=== PATIENT | male | born 1965 | race Caucasian/White ===

== ENCOUNTER 2017-02-02 23:57 | Emergency (ER) | payer OTHER ==
[~2017-02-02] VITALS: Ht 167.6 cm; Wt 95.3 kg
[~2017-02-02 23:57] MED LIST: CEPH500C; CYCL10TA9 PO; OXYC-109 PO; OXYC-471; SULF-222 PO; TRAM50TA2 PO
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
[2017-02-03] MEDS ORDERED: RX-TRAMADOL 50 MG (ULTRAM) TAB PPK#4 PO STA (00:34)
[2017-02-03] MEDS ORDERED: RX-NAPROXEN (NAPROSYN) 250 MG TAB PPK#4 PO STA (00:34)
[2017-02-03] MEDS ORDERED: TRAM-42 PO (00:41)
[2017-02-03] MEDS ORDERED: NAPR500T3 PO (00:41)
[2017-02-03 01:18] VITALS: BP 145/88
--- NOTE | 2017-02-03 07:03 | Diagnostic Imaging Report ---
INDICATION: Left knee pain. FINDINGS: 3 views of left knee show no fracture, dislocation or other acute abnormalities. There is some joint space narrowing in the medial tibiofemoral joint compartment. IMPRESSION: Early degenerative changes. No acute abnormality is seen. Dictated by: Dictated on workstation # [id number]
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
== END 2017-02-03 01:18 | disposition home or self-care (01) ==
LOC: EDUNIT# 23:57 → ER 02-03
DX: M25.562 Pain in left knee (principal); R22.42 Localized swelling, mass and lump, left lower limb; I10 Essential (primary) hypertension
CPT/HCPCS: 73562; 99283

== ENCOUNTER 2017-07-05 10:15 | Outpatient (RCR) | payer OTHER ==
[~2017-07-05 10:15] MED LIST changes: +NAPR500T3 PO; +TRAM-42 PO
== END 2017-07-05 12:03 | disposition home or self-care (01) ==
DX: Z02.71 Encounter for disability determination (principal)

== ENCOUNTER 2018-05-04 13:52 | Emergency (ER) | payer MEDICAID, OTHER ==
[~2018-05-04] VITALS: Ht 167.6 cm; Wt 106.6 kg
[~2018-05-04 13:52] MED LIST changes: +NAPR-915 PO; -NAPR500T3 PO
--- OUTSIDE RECORDS SUMMARY | 2018-05-04 13:58 | XMS REPORT ---
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 883512586 ALLERGIES Substance Reaction Event Type Date Status LATEX rash Non Drug Allergy Oct, Active ENCOUNTERS Encounter Location Date Diagnosis [place] [id number] [place] [phone] Nov, Dermatofibroma D23.9 [place] [address] [place] [id number] [place] [phone] Oct, Skin tags, multiple acquired L91.8 and Face lesion L98.9 [place] [address] [place] [id number] [place] [phone] Oct, 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 ; Skin tags, multiple acquired L91.8 ; Family history of heart disease Z82.49 and Family history of diabetes mellitus Z83.3 [place] [id number] [place] [phone] Oct, [place] [address] [place] [id number] [place] [phone] Oct, [place] [address] [place] [id number] [place] [phone] Oct, [place] [address] [place] [id number] [place] [phone] Oct, IMMUNIZATIONS No Known Immunizations SOCIAL HISTORY Never Assessed REASON FOR VISIT Skin tag removal (multiple in the armpitts and left side of face)-Mai LARA PLAN OF CARE VITAL SIGNS Height 66 in 2017-11-07 Weight 216.8 lbs 2017-11-07 Temperature 98.0 degrees Fahrenheit 2017-11-07 Heart Rate 76 bpm 2017-11-07 Respiratory Rate 18 2017-11-07 BMI 34.99 kg/m2 2017-11-07 Blood pressure systolic 164 mmHg 2017-11-07 Blood pressure diastolic 98 mmHg 2017-11-07 MEDICATIONS Unknown Medications RESULTS No Results PROCEDURES Procedure Date Ordered Result Body Site SKIN TAG REM LEISONS >15 (USE W/ [id number]) 2017-11-07 N/A CRYOTHERAPY OF SKIN 2017-11-07 N/A CRYOTHERAPY OF SKIN Nov 07, 2017 REMOVE SKIN TAGS ADD-ON Nov 07, 2017 INSTRUCTIONS MEDICATIONS ADMINISTERED No Known Medications MEDICAL (GENERAL) HISTORY Type Description Date Medical History hypertension Surgical History scope on knee Surgical History wrist surgery
--- OUTSIDE RECORDS SUMMARY | 2018-05-04 13:58 | XMS REPORT ---
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 907487628 ALLERGIES No Known Allergies ENCOUNTERS Encounter Location Date Diagnosis [place] [address] [phone] Nov, Dermatofibroma D23.9 [place] [address] [phone] Oct, Skin tags, multiple acquired L91.8 and Face lesion L98.9 [place] [address] [phone] Oct, 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 ; Skin tags, multiple acquired L91.8 ; Family history of heart disease Z82.49 and Family history of diabetes mellitus Z83.3 [place] [address] [place] [id number] [place] [phone] Oct, [place] [address] [place] [id number] [place] [phone] Oct, [place] [address] [address] Oct, [place] [address] [place] [id number] [place] [phone] Oct, IMMUNIZATIONS No Known Immunizations SOCIAL HISTORY Never Assessed REASON FOR VISIT skin tag--Joseph Carias MA PLAN OF CARE Activity Details Follow Up prn Reason: VITAL SIGNS Height 66 in 2017-10-20 Weight 222.8 lbs 2017-10-20 Temperature 98.2 degrees Fahrenheit 2017-10-20 Heart Rate 96 bpm 2017-10-20 Respiratory Rate 20 2017-10-20 BMI 35.96 kg/m2 2017-10-20 Blood pressure systolic 142 mmHg 2017-10-20 Blood pressure diastolic 90 mmHg 2017-10-20 MEDICATIONS Unknown Medications RESULTS No Results PROCEDURES No Known procedures INSTRUCTIONS MEDICATIONS ADMINISTERED No Known Medications MEDICAL (GENERAL) HISTORY Type Description Date Medical History hypertension Surgical History scope on knee Surgical History wrist surgery
[2018-05-04 14:12] LABS: BASOPHILS % (AUTO) 0 % (0-10); EOSINOPHILS # (AUTO) 0.3 10^3/uL (0.0-0.3); EOSINOPHILS % (AUTO) 3 % (0-10); HEMATOCRIT 43 % (40-54); HEMOGLOBIN 15.4 G/DL (13.3-17.7); LYMPHOCYTES # (AUTO) 2.2 X 10^3 (1.0-4.0); LYMPHOCYTES % (AUTO) 27 % (12-44); MEAN CORPUSCULAR HEMOGLOBIN 31 PG (25-34); MEAN CORPUSCULAR HGB CONC 36 G/DL (32-36); MEAN CORPUSCULAR VOLUME 85 FL (80-99); MEAN PLATELET VOLUME 9.4 FL (7.4-10.4); MONOCYTES # (AUTO) 0.7 X 10^3 (0.0-1.0); MONOCYTES % (AUTO) 9 % (0-12); NEUTROPHILS # (AUTO) 5.1 X 10^3 (1.8-7.8); NEUTROPHILS % (AUTO) 61 % (42-75); PLATELET COUNT 218 10^3/uL (130-400); RED BLOOD COUNT 5.02 10^6/uL (4.35-5.85); RED CELL DISTRIBUTION WIDTH 13.1 % (10.0-14.5); WHITE BLOOD COUNT 8.4 10^3/uL (4.3-11.0)
[2018-05-04] MEDS ORDERED: ASPIRIN 81 MG CHEW (CHILDREN'S ASA) PO ONE (14:15)
[2018-05-04 14:25] LABS: PROTHROMBIN TIME PATIENT 13.4 SEC (12.2-14.7)
--- NOTE | 2018-05-04 14:27 | Diagnostic Imaging Report ---
INDICATION: Chest pain. EXAMINATION: Portable chest at 2:17 p.m. FINDINGS: Heart size and pulmonary vascularity are normal. Lungs are clear. There are no effusions or pneumothoraces. IMPRESSION: Negative chest. Dictated by: Dictated on workstation # [id number]
[2018-05-04 14:37] LABS: ALANINE AMINOTRANSFERASE 75 U/L (0-55); ALBUMIN 4.3 GM/DL (3.2-4.5); ALKALINE PHOSPHATASE 85 U/L (40-136); BILIRUBIN,TOTAL 1.1 MG/DL (0.1-1.0); BUN/CREATININE RATIO 24; CALCIUM 9.1 MG/DL (8.5-10.1); CARBON DIOXIDE 21 MMOL/L (21-32); CHLORIDE 109 MMOL/L (98-107); CREATININE SERUM 0.84 MG/DL (0.60-1.30); GFR ESTIMATED > 60; GLUCOSE 97 MG/DL (70-105); MAGNESIUM 2.1 MG/DL (1.8-2.4); POTASSIUM 3.9 MMOL/L (3.6-5.0); SODIUM 139 MMOL/L (135-145); TOTAL PROTEIN 7.2 GM/DL (6.4-8.2)
[2018-05-04 14:45] LABS: MYOGLOBIN SERUM 34.8 NG/ML (10.0-92.0)
[2018-05-04] MEDS ORDERED: NS IV 1000 ML 1,000 ML IV ONE (15:05)
--- NOTE | 2018-05-04 15:13 | ED Chest Pain ---
General Chief Complaint: Chest Pain Stated Complaint: CP,LEFT ARM NUMB Nursing Triage Note: pt presents to ed with complaints of cp and l arm numbness starting at 1330. Nursing Sepsis Screen: No Definite Risk Source: patient Exam Limitations: no limitations History of Present Illness Date Seen by Provider: May 04, 2018 Time Seen by Provider: 14:50 Initial Comments Here with report of chest pain that was on the right side and is in the left side and then radiated to the left arm. Onset today at about 130. He's had intermittent events like this before. Denies nausea, vomiting, sweating, weakness or breathing problems with this pain is described as an ache in his much gone now. Does report history of hypertension although not noted here. Does wear a leg brace during the day due to instability of the left knee but does not wear at nighttime. Timing/Duration: 1-3 hours, changing over time, intermittent Severity/Quality: moderate, aching Location: central Radiation: arms (left) Prior CP/Workup: no prior cardiac workup Modifying Factors: worse with exercise, worse with oxygen ASA po FAST FOOD SERVER: No NTG SL FAST FOOD SERVER: No Associated Symptoms: No back pain; nausea/vomiting; No shortness of breath, No weakness Allergies and Home Medications Allergies Coded Allergies: latex (Verified Allergy, Unknown, 05/04/18) Home Medications Cyclobenzaprine Hcl 10 Mg Tablet, 1 EACH PO Q8HR PRN PRN for SPASMS Prescribed by: LEONIDES LANGLEY on 12/25/132224 Naproxen 500 Mg Tablet, 500 MG PO BID Prescribed by: JIMI WEEKS on 02/03/17 004 Tramadol HCl 50 Mg Tablet, 50 MG PO Q4H Prescribed by: JIMI WEEKS on 02/03/17 0041 Patient Home Medication List Home Medication List Reviewed: Yes Review of Systems Constitutional: see HPI; No chills, No fever EENTM: No Symptoms Reported Respiratory: No Symptoms Reported Cardiovascular: Chest Pain; Denies Edema, Denies Lightheadedness, Denies Palpitations Gastrointestinal: No Symptoms Reported Genitourinary: No Symptoms Reported All Other Systems Reviewed Negative Unless Noted: Yes Past Tetqwjk-Rluebv-Xfaodn Hx Past Med/Social Hx: Reviewed Nursing Past Med/Soc Hx Patient Social History Alcohol Use: Occasionally Uses Number of Drinks Today: GG Alcohol Beverage of Choice: Beer, Whiskey Recreational Drug Use: Yes (SMOKES CIGARS ET PIPES) Smoking Status: Current Everyday Smoker Type Used: Cigars, Pipe Recent Foreign Travel: No Contact w/Someone Who Travel: No Recent Infectious Disease Expo: No Recent Hopitalizations: Yes (SURG L HAND SURG) Physical Abuse: No Sexual Abuse: No Mistreated: No Fear: No Immunizations Up To Date Tetanus Booster (TDap): Less than 5yrs Past Medical History Surgeries: Yes (L KNEE SCOPE, R WRIST SURG--DR. MATHIAS, ORTHO 4 STATES) Orthopedic Respiratory: No Cardiac: Yes Hypertension Neurological: No Reproductive Disorders: No Sexually Transmitted Disease: No Genitourinary: No Gastrointestinal: No Musculoskeletal: Yes (ACL AND MEDIAL MENISCUS TEAR LEFT KNEE; RIGHT WRIST SURGERY) Endocrine: No Cataract Cancer: No Psychosocial: No Nursing Suicide Risk Score: 0 Integumentary: No Blood Disorders: No Family Medical History Reviewed Nursing Family Hx Physical Exam Vital Signs Vital Signs - First Documented 05/04/18 14:13 Temp 98.2 Pulse 92 Resp 20 B/P (MAP) 155/96 (115) Pulse Ox 95 Capillary Refill : Less Than 3 Seconds General Appearance: No Apparent Distress, WD/WN HEENT: PERRL/EOMI, Pharynx Normal Neck: Non Tender, Supple Respiratory: Lungs Clear, Normal Breath Sounds Cardiovascular: Regular Rate, Rhythm, No Murmur Gastrointestinal: Non Tender, Soft Extremity: Normal Range of Motion, Non Tender Neurologic/Psychiatric: Alert, Oriented x3 Skin: Normal Color, Warm/Dry Progress/Results/Core Measures Results/Orders Lab Results Laboratory Tests Test 05/04/18 14:02 05/04/18 16:25 Range/Units White Blood Count 8.4 4.3-11.0 10^3/uL Red Blood Count 5.02 4.35-5.85 10^6/uL Hemoglobin 15.4 13.3-17.7 G/DL Hematocrit 43 40-54 % Mean Corpuscular Volume 85 80-99 FL Mean Corpuscular Hemoglobin 31 25-34 PG Mean Corpuscular Hemoglobin Concent 36 32-36 G/DL Red Cell Distribution Width 13.1 10.0-14.5 % Platelet Count 218 130-400 10^3/uL Mean Platelet Volume 9.4 7.4-10.4 FL Neutrophils (%) (Auto) 61 42-75 % Lymphocytes (%) (Auto) 27 12-44 % Monocytes (%) (Auto) 9 0-12 % Eosinophils (%) (Auto) 3 0-10 % Basophils (%) (Auto) 0 0-10 % Neutrophils # (Auto) 5.1 1.8-7.8 X 10^3 Lymphocytes # (Auto) 2.2 1.0-4.0 X 10^3 Monocytes # (Auto) 0.7 0.0-1.0 X 10^3 Eosinophils # (Auto) 0.3 0.0-0.3 10^3/uL Basophils # (Auto) 0.0 0.0-0.1 10^3/uL Prothrombin Time 13.4 12.2-14.7 SEC INR Comment 1.0 0.8-1.4 Activated Partial Thromboplast Time 29 24-35 SEC D-Dimer 0.73 H 0.00-0.49 UG/ML Sodium Level 139 135-145 MMOL/L Potassium Level 3.9 3.6-5.0 MMOL/L Chloride Level 109 H 98-107 MMOL/L Carbon Dioxide Level 21 21-32 MMOL/L Anion Gap 9 5-14 MMOL/L Blood Urea Nitrogen 20 H 7-18 MG/DL Creatinine 0.84 0.60-1.30 MG/DL Estimat Glomerular Filtration Rate > 60 BUN/Creatinine Ratio 24 Glucose Level 97 70-105 MG/DL Calcium Level 9.1 8.5-10.1 MG/DL Magnesium Level 2.1 1.8-2.4 MG/DL Total Bilirubin 1.1 H 0.1-1.0 MG/DL Aspartate Amino Transf (AST/SGOT) 35 H 5-34 U/L Alanine Aminotransferase (ALT/SGPT) 75 H 0-55 U/L Alkaline Phosphatase 85 40-136 U/L Myoglobin 34.8 10.0-92.0 NG/ML Troponin I < 0.30 < 0.30 <0.30 NG/ML Total Protein 7.2 6.4-8.2 GM/DL Albumin 4.3 3.2-4.5 GM/DL My Orders Orders - JUJU HUA MD Ekg Tracing (05/04/18 14:01) Cbc With Automated Diff (05/04/18 14:04) Magnesium (05/04/18 14:04) Chest 1 View, Ap/Pa Only (05/04/18 14:04) Cardiac Profile 1 (05/04/18 14:04) Comprehensive Metabolic Panel (05/04/18 14:04) Myoglobin Serum (05/04/18 14:04) Protime With Inr (05/04/18 14:04) Partial Thromboplastin Time (05/04/18 14:04) O2 (05/04/18 14:04) Monitor-Rhythm Ecg Trace Only (05/04/18 14:04) Lipid Panel (05/05/18 06:00) Aspirin Chewable Tablet (Baby Aspirin Ch (05/04/18 14:15) Saline Lock/Iv-Start (05/04/18 14:04) Fibrin Degradation Products (05/04/18 14:04) Ct Angio Chest W (05/04/18 15:05) Ns Iv 1000 Ml (Sodium Chloride 0.9%) (05/04/18 15:05) Iohexol Injection (Omnipaque 350 Mg/Ml 1 (05/04/18 15:15) Sodium Chloride Flush (Catheter Flush Sy (05/04/18 15:15) Ns (Ivpb) (Sodium Chloride 0.9%) (05/04/18 15:15) Pharmacy Communication (Pharmacy Communi (05/04/18 15:07) Troponin I (05/04/18 16:20) Medications Given in ED Current Medications Medications Dose Ordered Sig/Edda Route Start Time Stop Time Status Last Admin Dose Admin Aspirin 324 mg ONCE ONCE PO 05/04/18 14:15 05/04/18 14:16 DC 05/04/18 14:24 324 MG Iohexol 150 ml ONCE ONCE IV 05/04/18 15:15 05/04/18 15:16 DC 05/04/18 15:28 125 ML Sodium Chloride 10 ml NEEDED PRN IV 05/04/18 15:15 05/04/18 15:28 10 ML Sodium Chloride 250 ml ONCE ONCE IV 05/04/18 15:15 05/04/18 15:16 DC 05/04/18 15:28 80 ML Sodium Chloride 1,000 ml @ 0 mls/hr Q0M ONCE IV 05/04/18 15:05 05/04/18 15:07 DC 05/04/18 15:33 0 MLS/HR Vital Signs/I&O 05/04/18 14:13 Temp 98.2 Pulse 92 Resp 20 B/P (MAP) 155/96 (115) Pulse Ox 95 Blood Pressure Mean: 115 Progress Progress Note : Progress Note Seen and evaluated the patient. IV, labs, ASA 304 mg by mouth, chest x-ray and EKG ordered. Monitor patient. D-dimer slightly elevated and patient wears leg brace so a higher risk. CT angiogram of the chest ordered and normal saline 1 L bolus ordered. Monitor patient. 1706: Patient is without pain and repeat troponin is negative as well as CT angiogram of the chest. Patient remains pain free. At this point safe for discharge home with follow-up. Discharged home with return precautions. Patient verbalize understanding instructions and agreement with plan. He is to follow-up with the [facility] for referral to cardiology as needed. Initial ECG Impression Date: May 04, 2018 Initial ECG Impression Time: 13:59 Initial ECG Rate: 91 Initial ECG Rhythm: Normal Sinus Comment Sinus rhythm with left atrial abnormality. No evidence of ST elevation FL. Normal axis. Interpreted by me. Diagnostic Imaging Diagonstic Imaging: Xray Plain Films/CT/US/NM/MRI: chest Comments NAME: ALEE FINNEGAN [facility] REC#: [id number] PT STATUS: REG ER : 1965 PHYSICIAN: JUJU HUA MD ADMIT DATE: 05/04/18/ER Signed Date of Exam: 05/04/18 CHEST 1 VIEW, AP/PA ONLY INDICATION: Chest pain. EXAMINATION: Portable chest at 2:17 p.m. FINDINGS: Heart size and pulmonary vascularity are normal. Lungs are clear. There are no effusions or pneumothoraces. IMPRESSION: Negative chest. Dictated by: Dictated on workstation # [id number] Dict: 05/04/18 1421 Trans: 05/04/18 142 Interpreted by: JUJU MOREL MD Electronically signed by: JUJU MOREL MD 05/04/181426 Diagonstic Imaging: CT Plain Films/CT/US/NM/MRI: chest Comments VIA [facility] [place] [place], [place] NAME: ALEE FINNEGAN [place] [facility] REC#: [id number] PT STATUS: REG ER : 1965 PHYSICIAN: JUJU HUA MD ADMIT DATE: 05/04/18/ER Draft Date of Exam:05/04/18 CT ANGIO CHEST W PROCEDURE: CT angiography of the chest with contrast. TECHNIQUE: Multiple contiguous axial images were obtained through the chest after uneventful bolus administration of intravenous contrast. Reconstructed CTA MIP acquisitions were also performed. INDICATION: Chest pain and left arm numbness as well as elevated d-dimer. COMPARISON: No prior studies are available for comparison. FINDINGS: Evaluation of the pulmonary arterial system is without evidence of thromboembolism. No filling defects are identified within the central, lobar or segmental branches. The thoracic aorta is normal caliber. No dissection is seen. No pericardial or pleural fluid is identified. No axillary, hilar or mediastinal lymphadenopathy is identified. No pulmonary infiltrates, nodules or masses are seen. Upper abdomen does demonstrate hepatic steatosis. IMPRESSION: 1. No evidence of pulmonary embolism or thoracic aortic dissection. 2. Hepatic steatosis. Dictated on workstation # [id number] Dict: 05/04/18 1535 Trans: 05/04/18 1543 [facility] [id number] Interpreted by: MCKAY BYRNE MD Electronically signed by: Departure Impression Primary Impression: Chest pain Qualified Codes: R07.9 - Chest pain, unspecified Disposition: 01 HOME, SELF-CARE Condition: Improved Departure-Patient Inst. Decision time for Depature: 17:10 Referrals: RAMÓN STEVEN MD (PCP/Family) Primary Care Physician Patient Instructions: Chest Pain (DC) Add. Discharge Instructions: All discharge instructions reviewed with patient and/or family. Voiced understanding. Follow-up with your doctor this week for recheck and further evaluation and for referral to cardiology as needed. Return for worsening, fever, vomiting, weakness, breathing problems or other concerns as needed. You can consider over -the-counter Pepcid or the generic famotidine 20 mg daily as needed for stomach upset. You may take Tylenol/acetaminophen 1000 mg every 8 hours as needed for pain. Copy Copies To 1: RAMÓN STEVEN MD, TIMOTHY D MD May 04, 2018 15:13
[2018-05-04] MEDS ORDERED: CATHETER FLUSH 10 ML SYR IV PRN (15:15)
[2018-05-04] MEDS ORDERED: IOHEXOL 350 MG/ML 150 ML (OMNIPAQUE 350) VIAL IV ONE (15:15)
[2018-05-04] MEDS ORDERED: NS 250 ML (IVPB) BAG IV ONE (15:15)
--- NOTE | 2018-05-04 15:44 | Diagnostic Imaging Report ---
PROCEDURE: CT angiography of the chest with contrast. TECHNIQUE: Multiple contiguous axial images were obtained through the chest after uneventful bolus administration of intravenous contrast. Reconstructed CTA MIP acquisitions were also performed. INDICATION: Chest pain and left arm numbness as well as elevated d-dimer. COMPARISON: No prior studies are available for comparison. FINDINGS: Evaluation of the pulmonary arterial system is without evidence of thromboembolism. No filling defects are identified within the central, lobar or segmental branches. The thoracic aorta is normal caliber. No dissection is seen. No pericardial or pleural fluid is identified. No axillary, hilar or mediastinal lymphadenopathy is identified. No pulmonary infiltrates, nodules or masses are seen. Upper abdomen does demonstrate hepatic steatosis. IMPRESSION: 1. No evidence of pulmonary embolism or thoracic aortic dissection. 2. Hepatic steatosis. Dictated by: Dictated on workstation # [id number]
[2018-05-04 17:19] VITALS: BP 140/90
== END 2018-05-04 17:19 | disposition home or self-care (01) ==
LOC: EDUNIT# 13:52 → ER 13:54
DX: R07.89 Other chest pain (principal); I10 Essential (primary) hypertension; F17.290 Nicotine dependence, other tobacco product, uncomplicated; Z91.040 Latex allergy status
CPT/HCPCS: 36415; 71045; 71275; 80053; 83735; 83874; 84484; 85025; 85379; 85610; 85730; 93005; 93041

== ENCOUNTER 2019-11-18 10:15 | Outpatient (CLI) | payer MEDICAID ==
[~2019-11-18] VITALS: Ht 165 cm; Wt 98.6 kg
[~2019-11-18 10:15] MED LIST changes: +AMLO10TA7 PO; +LISI10TA2 PO; +POLY17PO6 PO
== END 2019-11-18 11:07 | disposition home or self-care (01) ==
LOC: PREOP 10:15
PROVIDERS: ATTEND Surgery
DX: Z01.818 Encounter for other preprocedural examination (principal)

== ENCOUNTER → 2020-03-23 | Outpatient (CLI) | payer MEDICAID, MEDICARE | LOC: CARD 08:51 | PROVIDERS: ATTEND Internal Medicine Interventional Cardiology | DX: R07.2 Precordial pain (principal); R73.03 Prediabetes; I10 Essential (primary) hypertension; Z72.0 Tobacco use | CPT/HCPCS: 93306 ==

== ENCOUNTER → 2020-03-26 | Outpatient (CLI) | payer MEDICAID, MEDICARE ==
[~2020-03-26] MED LIST changes: +REGADENOSON 0.4 MG/5 ML SYR (LEXISCAN) IV ONE
[2020-03-26] MEDS: CATHETER FLUSH 10 ML SYR IV PRN ×2 (08:14→09:57)
[2020-03-26 09:56] VITALS: BP 128/85
--- NOTE | 2020-04-04 14:14 | Cardiology Stress Test Report ---
Stress Test Report Type of NM Stress Test: Test Type: LEXISCAN 0.4MG/5ML Date of Procedure/Referring: Date of Procedure: March 26, 2020 PCP Melody Hernandez MD Admitting Physician [place] Indications: Precordial pain Baseline Heart Rate: 81 Baseline Blood Pressure: Blood Pressure Systolic: 128 Blood Pressure Diastolic: 85 Baseline EKG: Baseline EKG: Sinus rhythm Summary & Conclusion: Summary: The patient was brought to the stress lab after informed consent was taken. Stress test was performed according to the Lexiscan protocol. 0.4 mg of IV Lexiscan was given. Low-grade exercise was performed. Baseline EKG showed sinus rhythm at 81 bpm, blood pressure 123/79 mmHg. Maximum heart rate of 101 bpm and blood pressure 129/78 mmHg. Patient did not have any chest pain, arrhythmias or ST segment changes during the stress test. 9.77 mCi of Myoview were given for rest imaging and 30.4 mCi of Myoview given for stress imaging. Transient ischemic dilatation score , EF percent. Normal wall motion. Normal myocardial perfusion imaging during rest and stress. Small fixed apical defect likely artifact. Conclusion: Pharmacological stress test was negative for ischemia. Normal LV function with no wall motion abnormalities. Normal myocardial perfusion imaging during rest and stress. Melody HERNANDEZ MD April 04, 2020 14:14
== END ==
LOC: CARD 07:14
PROVIDERS: ATTEND Internal Medicine Interventional Cardiology
DX: R07.2 Precordial pain (principal); R73.03 Prediabetes; I10 Essential (primary) hypertension; Z72.0 Tobacco use
CPT/HCPCS: 78452; 93017

== ENCOUNTER 2020-04-10 15:36 | Emergency (ER) | payer MEDICARE ==
[~2020-04-10] VITALS: Ht 165.1 cm; Wt 99.3 kg
[~2020-04-10 15:36] MED LIST changes: -REGADENOSON 0.4 MG/5 ML SYR (LEXISCAN) IV ONE
--- NOTE | 2020-04-10 16:11 | ED Chest Pain ---
General Stated Complaint: CP X 2 MONTHS Source: patient Exam Limitations: no limitations History of Present Illness Date Seen by Provider: April 10, 2020 Time Seen by Provider: 16:09 Initial Comments To ER with left-sided chest pain intermittently for 2 months. No associated shortness of breath diaphoresis or nausea. He has followed with Dr. Hernandez, had an echocardiogram done which she tells me was normal, he had a stress test done just about a week ago which I reviewed and was negative for ischemia. This chest pain is sharp in nature. This particular episode began a few hours ago while he was sweeping the floor. Timing/Duration: intermittent Severity/Quality: moderate, sharp Location: other (left sided) Radiation: no radiation ASA po CHIEF MATE: No NTG SL CHIEF MATE: No Associated Symptoms: No shortness of breath Allergies and Home Medications Allergies Coded Allergies: latex (Verified Allergy, Mild, ITCHING/RASH, 11/18/19) Home Medications Amlodipine Besylate 10 Mg Tablet, 10 MG PO DAILY, (Reported) Lisinopril 10 Mg Tablet, 10 MG PO DAILY, (Reported) Polyethylene Glycol 3350 17 Gm Powd.pack, 17 GM PO DAILY, (Reported) Patient Home Medication List Home Medication List Reviewed: Yes Review of Systems Review of Systems Constitutional: see HPI EENTM: No Symptoms Reported Respiratory: See HPI Cardiovascular: See HPI, Chest Pain Gastrointestinal: No Symptoms Reported Genitourinary: No Symptoms Reported Musculoskeletal: no symptoms reported Skin: no symptoms reported Psychiatric/Neurological: No Symptoms Reported Endocrine: No Symptoms Reported Hematologic/Lymphatic: No Symptoms Reported Past Ozvrlzg-Ekluda-Sgybuj Hx Patient Social History Alcohol Beverage of Choice: Beer, Whiskey Type Used: Cigars, Pipe 2nd Hand Smoke Exposure: Yes Recent Foreign Travel: No Contact w/Someone Who Travel: No Recent Hopitalizations: No Immunizations Up To Date Tetanus Booster (TDap): Less than 5yrs Seasonal Allergies Seasonal Allergies: No Past Medical History Surgeries: Yes (L KNEE SCOPE, R WRIST) Orthopedic Respiratory: No Cardiac: Yes Hypertension Neurological: No Reproductive Disorders: No Sexually Transmitted Disease: No Genitourinary: No Gastrointestinal: No Musculoskeletal: Yes (ACL AND MEDIAL MENISCUS TEAR LEFT KNEE; RIGHT WRIST SURGERY) Endocrine: No (PRE-DIABETIC) HEENT: Yes (GLASSES) Cataract Loss of Vision: Denies Hearing Impairment: Denies Cancer: Yes Skin Psychosocial: Yes Depression Integumentary: No Blood Disorders: No Adverse Reaction/Blood Tranf: No (N/A) Physical Exam Vital Signs Vital Signs - First Documented Capillary Refill : Height, Weight, BMI Height: 5'6.00" Weight: 235lbs. oz. 106.260706ux; 233.37 BMI Method:Stated General Appearance: No Apparent Distress, WD/WN HEENT: PERRL/EOMI, TMs Normal Respiratory: No Accessory Muscle Use, No Respiratory Distress Cardiovascular: Regular Rate, Rhythm, Normal Peripheral Pulses Gastrointestinal: Normal Bowel Sounds, Non Tender, Soft Extremity: Normal Capillary Refill, Normal Inspection Neurologic/Psychiatric: Alert, Oriented x3 Skin: Normal Color, Warm/Dry Progress/Results/Core Measures Results/Orders Lab Results Laboratory Tests Test 04/10/20 16:00 Range/Units White Blood Count 7.3 4.3-11.0 10^3/uL Red Blood Count 4.63 4.35-5.85 10^6/uL Hemoglobin 13.8 13.3-17.7 G/DL Hematocrit 40 40-54 % Mean Corpuscular Volume 86 80-99 FL Mean Corpuscular Hemoglobin 30 25-34 PG Mean Corpuscular Hemoglobin Concent 35 32-36 G/DL Red Cell Distribution Width 12.9 10.0-14.5 % Platelet Count 240 130-400 10^3/uL Mean Platelet Volume 9.5 7.4-10.4 FL Neutrophils (%) (Auto) 56 42-75 % Lymphocytes (%) (Auto) 30 12-44 % Monocytes (%) (Auto) 11 0-12 % Eosinophils (%) (Auto) 3 0-10 % Basophils (%) (Auto) 0 0-10 % Neutrophils # (Auto) 4.1 1.8-7.8 X 10^3 Lymphocytes # (Auto) 2.2 1.0-4.0 X 10^3 Monocytes # (Auto) 0.8 0.0-1.0 X 10^3 Eosinophils # (Auto) 0.2 0.0-0.3 10^3/uL Basophils # (Auto) 0.0 0.0-0.1 10^3/uL Prothrombin Time 12.2 12.2-14.7 SEC INR Comment 0.9 0.8-1.4 Activated Partial Thromboplast Time 29 24-35 SEC D-Dimer 0.39 0.00-0.49 UG/ML Sodium Level 139 135-145 MMOL/L Potassium Level 3.5 L 3.6-5.0 MMOL/L Chloride Level 109 H 98-107 MMOL/L Carbon Dioxide Level 21 21-32 MMOL/L Anion Gap 9 5-14 MMOL/L Blood Urea Nitrogen 9 7-18 MG/DL Creatinine 0.97 0.60-1.30 MG/DL Estimat Glomerular Filtration Rate > 60 BUN/Creatinine Ratio 9 Glucose Level 142 H 70-105 MG/DL Calcium Level 8.3 L 8.5-10.1 MG/DL Corrected Calcium 8.5 8.5-10.1 MG/DL Magnesium Level 2.0 1.6-2.4 MG/DL Total Bilirubin 0.4 0.1-1.0 MG/DL Aspartate Amino Transf (AST/SGOT) 22 5-34 U/L Alanine Aminotransferase (ALT/SGPT) 40 0-55 U/L Alkaline Phosphatase 103 40-136 U/L Myoglobin 15.1 10.0-92.0 NG/ML Troponin I < 0.028 <0.028 NG/ML Total Protein 6.6 6.4-8.2 GM/DL Albumin 3.8 3.2-4.5 GM/DL My Orders Orders - TAD ORTEGA APRN Fibrin Degradation Products (04/10/20 16:29) Ketorolac Injection (Toradol Injection) (04/10/20 17:00) Medications Given in ED Current Medications Medications Dose Ordered Sig/Edda Route Start Time Stop Time Status Last Admin Dose Admin Ketorolac Tromethamine 15 mg ONCE ONCE IVP 04/10/20 17:00 04/10/20 17:01 DC 04/10/20 17:06 15 MG Vital Signs/I&O 04/10/20 04/10/20 15:50 15:50 Temp 36.9 Pulse 91 Resp 30 B/P (MAP) 112/82 (92) Pulse Ox 98 O2 Delivery Room Air Room Air Departure Communication (Admissions) 1720-after Toradol he states that his pain is gone. He would like to go on home because he lives by himself and needs to let his dogs out. I discussed with him that we would like to repeat a troponin at the 2 hour kalia to ensure that it is truly negative. He is understanding of the risk that the first one may have done with insufficient time between the onset of pain and drawing of the lab work. This could have been falsely reassuring. Accepting of this risk and would like to go on home. I discussed with him that his stress test was normal one week ago. Impression Primary Impression: Chest pain Qualified Codes: R07.9 - Chest pain, unspecified Disposition: 01 HOME, SELF-CARE Condition: Stable Departure-Patient Inst. Decision time for Depature: 17:22 Ref[facility]: [facility] [place] (PCP) Primary Care Physician BOB ROJO MD (Family) Primary Care Physician Patient Instructions: Chest Pain (DC) Copy Copies To 1: BOB ROJO MD; Melody HERNANDEZ MD, PETER J APRN April 10, 2020 16:11
[2020-04-10 16:17] LABS: BASOPHILS % (AUTO) 0 % (0-10); EOSINOPHILS # (AUTO) 0.2 10^3/uL (0.0-0.3); EOSINOPHILS % (AUTO) 3 % (0-10); HEMATOCRIT 40 % (40-54); HEMOGLOBIN 13.8 G/DL (13.3-17.7); LYMPHOCYTES # (AUTO) 2.2 X 10^3 (1.0-4.0); LYMPHOCYTES % (AUTO) 30 % (12-44); MEAN CORPUSCULAR HEMOGLOBIN 30 PG (25-34); MEAN CORPUSCULAR HGB CONC 35 G/DL (32-36); MEAN CORPUSCULAR VOLUME 86 FL (80-99); MEAN PLATELET VOLUME 9.5 FL (7.4-10.4); MONOCYTES # (AUTO) 0.8 X 10^3 (0.0-1.0); MONOCYTES % (AUTO) 11 % (0-12); NEUTROPHILS # (AUTO) 4.1 X 10^3 (1.8-7.8); NEUTROPHILS % (AUTO) 56 % (42-75); PLATELET COUNT 240 10^3/uL (130-400); RED CELL DISTRIBUTION WIDTH 12.9 % (10.0-14.5); WHITE BLOOD COUNT 7.3 10^3/uL (4.3-11.0)
[2020-04-10 16:27] LABS: ALBUMIN 3.8 GM/DL (3.2-4.5); CHLORIDE 109 MMOL/L (98-107); POTASSIUM 3.5 MMOL/L (3.6-5.0); SODIUM 139 MMOL/L (135-145)
[2020-04-10 16:29] LABS: CALCIUM 8.3 MG/DL (8.5-10.1)
[2020-04-10 16:30] LABS: GLUCOSE 142 MG/DL (70-105); INR 0.9 (0.8-1.4); PROTHROMBIN TIME PATIENT 12.2 SEC (12.2-14.7); TOTAL PROTEIN 6.6 GM/DL (6.4-8.2)
[2020-04-10 16:31] LABS: BILIRUBIN,TOTAL 0.4 MG/DL (0.1-1.0); CARBON DIOXIDE 21 MMOL/L (21-32)
[2020-04-10 16:33] LABS: ALKALINE PHOSPHATASE 103 U/L (40-136); CREATININE SERUM 0.97 MG/DL (0.60-1.30); GFR ESTIMATED > 60
[2020-04-10 16:34] LABS: BUN/CREATININE RATIO 9
[2020-04-10 16:36] LABS: ALANINE AMINOTRANSFERASE 40 U/L (0-55)
[2020-04-10] MEDS ORDERED: KETOROLAC 30 MG/ML VIAL IVP ONE (17:00)
--- NOTE | 2020-04-10 17:08 | Diagnostic Imaging Report ---
Indication: Chest pain Comparison is made study of 05/04/2018 Single AP view of the chest is obtained. FINDINGS: Heart size and pulmonary vascularity are within normal limits, and the lungs are clear, bilaterally. IMPRESSION: Unremarkable chest. Dictated by: Dictated on workstation # [id number]
[2020-04-10 17:44] VITALS: BP 115/76
== END 2020-04-10 17:44 | disposition home or self-care (01) ==
LOC: EDUNIT# 15:36 → ER 15:38
DX: R07.89 Other chest pain (principal); I10 Essential (primary) hypertension; Z91.040 Latex allergy status; Z77.22 Contact with and (suspected) exposure to environmental tobacco smoke (acute) (chronic); Z87.828 Personal history of other (healed) physical injury and trauma
CPT/HCPCS: 36415; 71045; 80053; 83735; 83874; 84484; 85025; 85379; 85610; 85730; 93005; 93041; 96374

== ENCOUNTER → 2021-07-26 | Outpatient (CLI) | payer MEDICARE ==
[~2021-07-26] VITALS: Ht 165 cm; Wt 94.0 kg
[~2021-07-26] MED LIST changes: +AMLO-251 PO; -AMLO10TA7 PO; +CATHETER FLUSH 10 ML SYR IV PRN; -LISI10TA2 PO; +LISI10TA25 PO; -OXYC-471; +OXYC1TAB11; +REGADENOSON 0.4 MG/5 ML SYR (LEXISCAN) IV ONE
[2021-07-26 09:01] VITALS: BP 104/67
--- NOTE | 2021-07-26 11:04 | Cardiology Stress Test Report ---
Stress Test Report Date of Procedure/Referring: Date of Procedure: Jul 26, 2021 PCP Cheryl Thomas MD Admitting Physician Center/[facility] Indications: CP Baseline Heart Rate: 64 Baseline Blood Pressure: Blood Pressure Systolic: 104 Blood Pressure Diastolic: 67 Baseline Vitals Vital Signs Date Time Temp Pulse Resp B/P (MAP) Pulse Ox O2 Delivery O2 Flow Rate FiO2 07/26/21 09:01 64 104/67 (79) 97 Baseline EKG: Baseline EKG: NSR Summary After explaining the procedure to the patient, he signed a consent and then brought to the stress nuclear laboratory. Patient received 0.4 mg Lexiscan for stress test, ECG, heart rate and blood pressure were monitored continuously. Resting and stress dose of radio tracer were injected, imaging was acquired and reviewed in short axis, horizontal long axis and vertical long axis views. TID: 1.03 SSS: 1 SDS: 1 EF: 63 1. Patient tolerated Lexiscan well 2. No significant ischemia or infarction on SPECT images 3. Normal left ventricular size, EF 63% EDMUND DAVIS MD Jul 26, 2021 11:04
== END ==
LOC: CARD 08:00
PROVIDERS: ATTEND Family Medicine
DX: R07.89 Other chest pain (principal)
CPT/HCPCS: 78452; 93017; A9502

== ENCOUNTER → 2022-04-13 | Outpatient (CLI) | payer MEDICARE ==
[~2022-04-13] MED LIST changes: -CATHETER FLUSH 10 ML SYR IV PRN
== END ==
LOC: CARD 11:29
PROVIDERS: ATTEND Internal Medicine Cardiovascular Disease
DX: I34.0 Nonrheumatic mitral (valve) insufficiency (principal); I11.9 Hypertensive heart disease without heart failure
CPT/HCPCS: 93306

== ENCOUNTER 2022-10-13 05:42 | Outpatient (CLI) | payer MEDICARE ==
[~2022-10-13] VITALS: Ht 167.6 cm; Wt 81.3 kg
[~2022-10-13 05:42] MED LIST changes: -REGADENOSON 0.4 MG/5 ML SYR (LEXISCAN) IV ONE
[2022-10-13] MEDS ORDERED: ASPI-999 PO (15:23)
[2022-10-13] MEDS ORDERED: ATOR20TA66 PO (15:23)
== END 2022-10-13 15:36 | disposition home or self-care (01) ==
LOC: PREOP 05:42
PROVIDERS: ATTEND Surgery
DX: Z01.818 Encounter for other preprocedural examination (principal)

== ENCOUNTER 2022-10-19 12:36 | Day surgery (SDC) | payer MEDICARE ==
[~2022-10-19] VITALS: Ht 167.6 cm; Wt 81.3 kg
[~2022-10-19 12:36] MED LIST changes: +ASPI-999 PO; +ATOR20TA66 PO; +LACTATED RINGERS 1,000 ML IV STA
[2022-10-19] MEDS ORDERED: LIDOCAINE JELLY 2% 6 ML SYRINGE MM PRN (12:45)
--- NOTE | 2022-10-19 12:49 | Progress Note-Pre Operative ---
Pre-Operative Progress Note Date of Available H&P: Oct 19, 2022 Date H&P Reviewed: Oct 19, 2022 Time H&P Reviewed: 12:30 History & Physical: No changes noted Pre-Operative Diagnosis: screening o REBEKAH TOVAR MD Oct 19, 2022 12:49
--- NOTE | 2022-10-19 12:50 | Discharge Inst-Surgical ---
D/C Lap Instructions-GUY Follow Up Activity as tolerated High Fiber Diet 25g or more per day Avoid Alcohol, Caffeine, Spicy [place] and Acid foods. Drink 64 fluid oz or more of fluids per day. Symptoms to Report: Fever over 101 degree F, Nausea/Vomiting If any problems/questions: Contact your physician or go to Emergency Room REBEKAH TOVAR MD Oct 19, 2022 12:50
[2022-10-19] MEDS ORDERED: ONDANSETRON 4 MG (ZOFRAN) ORAL DISSOLVE TAB PO PRN (13:00)
[2022-10-19] MEDS ORDERED: ONDANSETRON 4 MG/2 ML (SDV) Z0FRAN IVP PRN (13:00)
[2022-10-19 13:05] VITALS: BP 102/78
[2022-10-19] MEDS ORDERED: PROPOFOL INJECTION 50 ML IV ONE (13:25)
--- NOTE | 2022-10-19 14:12 | Anesthesia-General Post-Op ---
MAC Patient Condition Mental Status/LOC: Same as Preop Cardiovascular: Satisfactory Nausea/Vomiting: Absent Respiratory: Satisfactory Pain: Controlled Complications: Absent Post Op Complications Complications None Follow Up Care/Instructions Patient Instructions None needed. Anesthesiology Discharge Order Discharge Order Patient is doing well, no complaints, stable vital signs, no apparent adverse anesthesia problems. No complications reported per nursing. ANUSHKA CAMILO CRNA Oct 19, 2022 14:12
[2022-10-19 14:13] VITALS: BP 90/57
[2022-10-19 14:16] VITALS: BP 102/61
--- NOTE | 2022-10-19 14:17 | Progress Note-Post Operative ---
Post-Operative Progess Note Surgeon (s)/Synchro Assembler (s) Surgeon REBEKAH TOVAR MD Synchro Assembler: none Pre-Operative Diagnosis screening colo Post-Operative Diagnosis mild chronic stage 2 ext and int hemorrhoids. mild desc colon diverticulosis. Procedure & Operative Findings Date of Procedure 10/19/22 Procedure Performed/Findings colonoscopy Anesthesia Type mac Estimated Blood Loss Estimated blood loss (mL): minimal Specimens/Packing Specimens Removed none REBEKAH TOVAR MD Oct 19, 2022 14:17
[2022-10-19 14:20] VITALS: BP 162/61
[2022-10-19 14:39] VITALS: BP 162/61
--- NOTE | 2022-10-20 02:15 | OPERATIVE REPORT ---
DATE OF SERVICE: 10/19/2022 ATTENDING PRIMARY CARE PHYSICIAN: Dr. Cheryl Thomas. PREOPERATIVE DIAGNOSIS: Screening colonoscopy. POSTOPERATIVE DIAGNOSIS: 1. Mild chronic stage II external internal hemorrhoids. 2. Two isolated diverticula at the proximal portion of the descending colon. PROCEDURE: Colonoscopy. SURGEON: Rebekah Tovar MD ANESTHESIA: Monitored anesthesia care. ESTIMATED BLOOD LOSS: Minimal. FINDINGS: 1. Mild chronic stage II external internal hemorrhoids. 2. Two isolated diverticula at the proximal portion of the descending colon. DISPOSITION: The patient tolerated the procedure well. INDICATIONS FOR PROCEDURE: The patient is a 56-year-old male who was referred over to our office for a screening colonoscopy. He did have an attempt for colonoscopy in November 2019. However, the prep was inadequate and the visualization of the mucosa of the colon was also inadequate. One polyp was identified at that time, which was biopsied and found to be a tubular adenoma. He does not report any major issues with diarrhea and/or constipation as well as no red blood per rectum, nor any dark tarry stools. He also does not report any family history of colon cancer. DESCRIPTION OF PROCEDURE: The patient was brought to the endoscopy suite and laid in the left lateral decubitus position. After adequate IV pain and sedative medications and monitored anesthesia care, a digital rectal examination was performed. Mild chronic stage II external and internal hemorrhoids were identified, which were not actively edematous or inflamed and no bleeding, normal sphincter tone itself and there were no palpable masses. Prostate gland was palpable and appeared normal. The endoscope was then intubated into the anus, rectum and gently insufflated. The endoscope was then advanced through the valve of [place] of the rectum with no polyps or neoplasms identified. The prep was adequate. We then proceeded to the sigmoid colon. There were no diverticulosis identified. The endoscope was then advanced through the descending colon. At the proximal descending colon, two isolated small diverticulum were identified. The endoscope was then advanced through the transverse and ascending colon to the cecum, which were normal. The endoscope was then slowly withdrawn taking second look and suction of residual air with no additional findings. The patient tolerated the procedure well. PLAN: Will recommend a high fiber diet with a fiber supplementation which should equal to 30 grams daily to promote soft consistency stools on a daily basis. If he is asymptomatic, he does not need another colonoscopy for another 10 years. Job ID: [id number] DocumentID: [id number] Dictated Date: 10/19/2022 14:12:38 Transportation Officer Date: 10/20/2022 02:13:00 Dictated By: REBEKAH TOVAR MD
== END 2022-10-19 14:50 | disposition home or self-care (01) ==
LOC: ENDO 12:36
PROVIDERS: ATTEND Surgery
DX: Z12.11 Encounter for screening for malignant neoplasm of colon (principal); K64.1 Second degree hemorrhoids; K64.4 Residual hemorrhoidal skin tags; K57.30 Diverticulosis of large intestine without perforation or abscess without bleeding; Z86.010 Personal history of colon polyps; F17.290 Nicotine dependence, other tobacco product, uncomplicated; Z91.040 Latex allergy status